=== PATIENT | female | born 1945 | race Caucasian/White ===

== ENCOUNTER 2016-06-22 10:31 | Inpatient (IN) | payer OTHER ==
[2016-05-14 12:57] VITALS: BMI 34.0
--- NOTE | 2016-05-14 13:27 | PAT Medication Instructions ---
Service Date May 14, 2016. Current Home Medication List Atorvastatin (Lipitor), 20 MG PO QAM Cholecalciferol (Vitamin D3), 1 TAB PO QAM Ibuprofen (Advil), 400-600 MG PO Q6H PRN for Pain Tolterodine Tartrate (Detrol LA), 2.5 CAP PO QAM Medication Instructions For Your Scheduled Surgery - Hold the following medications 7 days prior to surgery per surgeon instructions: Ibuprofen (Advil), 400-600 MG PO Q6H PRN for Pain - Hold the following medications the morning of surgery: Tolterodine Tartrate (Detrol LA), 2.5 CAP PO QAM Cholecalciferol (Vitamin D3), 1 TAB PO QAM - Take the following medications the morning of surgery with a sip of water: Atorvastatin (Lipitor), 20 MG PO QAM Tylenol (if needed) - Take the following medications as scheduled the night before surgery: Tylenol (if needed) If you have any questions please call us at [phone] or [phone] ( [place]) or [phone]
--- NOTE | 2016-05-14 14:18 | DIAGNOSTIC IMAGING REPORT ---
CHEST PREADMISSION(PA/LAT) CLINICAL HISTORY: PAT preoperative evaluation COMPARISON STUDY: No previous studies for comparison. FINDINGS: The bones soft tissues and hemidiaphragms are normal. The cardiomediastinal silhouette is normal. The lungs are clear. The pulmonary vasculature is normal. IMPRESSION: Negative chest. Electronically signed by: Rich Matute M.D. 05/14/2016 2:17 PM
[2016-05-14 14:40] LABS: BASO % 0.4 %; BASO ABS # 0.03 K/uL (0-0.2); COMPLETE YES; EOS % 1.9 %; HEMATOCRIT 37.9 % (37-47); IG% 0.1 %; LYMPH ABS # 1.24 K/uL (1.2-3.4); MEAN CELL VOLUME 97.7 fL (80-100); MEAN CORPUSCULAR HGB CONC 32.7 g/dl (32-36); MONO % 7.8 %; NEUT % 72.8 %; PLATELET COUNT 285 K/uL (130-400); RED BLOOD COUNT 3.88 M/uL (4.2-5.4)
[2016-05-14 14:42] LABS: URINE APPEARANCE CLEAR (CLEAR); URINE COLOR DK YELLOW; URINE NITRITE NEG (NEG); UROBILINOGEN NEG (NEG); ZZUR CULT IF INDIC CLEAN CATCH NO
[2016-05-14 14:43] LABS: MANUAL MICROSCOPIC REQUIRED? NO; REVIEW REQ? NO
[2016-05-14 14:44] LABS: URINE BILIRUBIN NEG (NEG)
[2016-05-14 14:53] LABS: PROTHROMBIN TIME (PATIENT) 11.1 SECONDS (9.0-12.0)
[2016-05-14 15:11] LABS: BUN/CREATININE RATIO 22.4 (10-20); CREATININE 0.87 mg/dl (0.60-1.20); POTASSIUM 4.1 mmol/L (3.5-5.1)
[2016-05-14 15:46] LABS: CALCIUM 9.4 mg/dl (8.5-10.1)
--- NOTE | 2016-06-18 09:03 | HISTORY & PHYSICAL EXAMINATION ---
DATE OF ADMISSION: 06/22/2016 CHIEF COMPLAINT: Bilateral knee pain. HISTORY OF PRESENT ILLNESS: Chandni is a 71-year-old female with bilateral knee pain. She states the right is greater than the left. She rates her pain an 8/10. She has pain with her daily activities. She has limited standing and walking tolerance. Pain is worse with weightbearing. The patient has had injections, anti-inflammatories, and wears a knee sleeve without relief. She has failed conservative treatment and is scheduled for right knee replacement. PAST MEDICAL HISTORY: Osteoarthritis, history of breast cancer. She denies heart disease, diabetes or DVT. PAST SURGICAL HISTORY: Modified mastectomy, hysterectomy. SOCIAL HISTORY: The patient denies alcohol or tobacco use. She lives in a 2-story home. She is and retired. FAMILY HISTORY: Negative for DVT. MEDICATIONS: Lipitor 20 mg, vitamin D3 1000 mg daily, Motrin p.r.n., Detrol 5 mg. ALLERGIES: BEE STINGS. REVIEW OF SYSTEMS: See HPI. Ten other systems reviewed, all negative. PHYSICAL EXAMINATION: VITAL SIGNS: Height 5 foot 4, weight 199 pounds, BMI 34. GENERAL: This is a well-developed, well-nourished female who is alert and oriented x3. Mood and affect are appropriate. HEAD, EYES, EARS, NOSE, AND THROAT: Normocephalic, atraumatic. Mucous membranes are moist and intact. NECK: Supple without lymphadenopathy. HEART: Regular rate and rhythm without murmurs, rubs or gallops. LUNGS: Clear to auscultation without wheezes or rhonchi. ABDOMEN: Soft and nontender. Bowel sounds are equal and active. EXTREMITIES: No ecchymosis, redness or warmth. She has a valgus deformity. Range of motion is from 0-110 degrees with no laxity. She is neurovascularly intact with +5/5 strength. X-RAY EXAMINATION: AP and lateral views show joint space narrowing and osteophyte formation. IMPRESSION: Degenerative joint disease, right knee. PLAN: The patient will be admitted for a right total knee arthroplasty. We will plan on aspirin for DVT prophylaxis. The patient is doing [facility] for home physical therapy. PCP is Dr. Marcos in [place].
[2016-06-22] VITALS (8 sets, daily range): BP systolic 130–178; BP diastolic 73–86; PULSE 69–81; TEMP 36.4–36.8; O2SAT 94–100; Ht 162.6 cm; Wt 90.8 kg
[~2016-06-22] VITALS: Ht 162.6 cm; Wt 90.8 kg
[2016-06-22] MEDS: TRANEXAMIC ACID INJ 1,000 MG in SODIUM CHLORIDE 0.9% 100ML 100 ML IV SCH ×2 (06:30→12:38)
[~2016-06-22 10:31] MED LIST: ACETAMINOPHEN 500 MG TAB PO SCH; ATOR-22 PO; ATROPINE SULFATE 0.1 MG/ML 5ML SYR IV PRN; BUPIVACAINE 0.25% 30 ML VIAL ONE; BUPIVACAINE 0.5 % 5 MG/1 ML PF 10ML VIAL ONE; CEFAZOLIN 2000 MG/60 ML D5W 60 ML IV SCH; CHOL1000 PO; CeleBREX 200 MG CAP PO SCH; DEXAMETHASONE 4 MG TAB PO SCH; DTRSR/2 PO; EpHEDrine SULFATE INJ 50 MG/ML AMP IV PRN; FAMOTIDINE 20 MG TAB PO SCH; FENTANYL CITRATE INJ 50 MCG/1 ML 2 ML VIAL IV PRN; GABAPENTIN 300 MG CAP PO SCH; IBUP-1050 PO; LACTATED RINGER'S 1000ML 1,000 ML IV SCH; LACTATED RINGER'S 1000ML 500 ML IV ONE; LACTATED RINGER'S 1000ML IV SCH; METOCLOPRAMIDE HCL 10 MG TAB PO SCH; ONDANSETRON INJ 2 MG/ML 2 ML VIAL IV PRN; OXYCODONE HCL 10 MG TABCR (OXYCONTIN) PO SCH; POLYMYXIN B SULFATE 100,000 UNITS in NSS 100ML IR SCH; ROPIVACAINE 5MG/ML 30 ML 150 MG, BUPIVACAINE/EPINEPHR 0.5% MPF 30 ML, KETOROLAC TROMETH... INFIL SCH; VANCOMYCIN INJ 400 MG in NSS 100ML IR SCH
[2016-06-22] MEDS ORDERED: PROPOFOL IV EMULSION 10 MG/ML 20 ML VIAL IV ONE ×2 (11:40→13:13)
[2016-06-22] MEDS ORDERED: FENTANYL CITRATE INJ 50 MCG/1 ML 2 ML VIAL ONE (11:41)
[2016-06-22] MEDS ORDERED: MIDAZOLAM HCL 1 MG/ML 2ML VIAL ONE (11:41)
--- NOTE | 2016-06-22 11:53 | History & Physical Bridge Note ---
H&P Re-Evaluation Bridge Note: I have examined the patient, reviewed the History & Physical and in the interval since the performance of the History & Physical I have noted the following changes of clinical significance: No changes noted
[2016-06-22] MEDS ORDERED: ORTHO JOINT ANESTHETIC ONE (12:17)
[2016-06-22] MEDS ORDERED: LIDOCAINE HCL 2% 2 ML VIAL (20MG/ML) ONE (13:08)
[2016-06-22] MEDS ORDERED: POVIDONE-IODINE OP SOLN 30 ML BTL TOP ONE (13:35)
[2016-06-22] MEDS ORDERED: BACITRACIN 50000 UNIT VIAL IR ONE (13:35)
[2016-06-22] MEDS ORDERED: BUPIVACAINE/EPINEPHRINE 0.25% 1:200,000 30 ML VIAL INJ ONE (13:35)
[2016-06-22] MEDS ORDERED: PHENYLEPHRINE HCL INJ 10 MG/ML VIAL ONE (13:41)
--- NOTE | 2016-06-22 14:24 | [facility] Post Operative Brief Note ---
Immediate Operative Summary Operative Date Jun 22, 2016. Pre-Operative Diagnosis Degenerative joint disease right knee Post-Operative Diagnosis same as preoperative Procedure(s) Performed Right Total Knee Arthroplasty cemented Surgeon Dr. Ellis Chief Digital Officer Surgeon(s) Subha Justin PA-C Estimated Blood Loss 75ML Findings DJD Specimens A. Right knee bone and tissue Complication(s) None Disposition Recovery Room / PACU
[2016-06-22] MEDS ORDERED: MoRPHine SULFATE 2 MG/ML CARP IV PRN (14:30)
[2016-06-22] MEDS ORDERED: TRAMADOL HCL 50 MG TAB PO PRN (14:30)
[2016-06-22] MEDS ORDERED: SOD PHOSPHATE/SOD BIPHOSPHATE ENEMA 132 ML BTL PR PRN (14:30)
[2016-06-22] MEDS ORDERED: ALUMINUM/MAGNESIUM/SIMETH (MAALOX MAX) 30 ML UDC PO PRN (14:30)
[2016-06-22] MEDS ORDERED: DiphenhydrAMINE HCL 50 MG/ML VIAL IV PRN (14:30)
[2016-06-22] MEDS ORDERED: ONDANSETRON INJ 2 MG/ML 2 ML VIAL IV PRN (14:30)
[2016-06-22] MEDS ORDERED: METOCLOPRAMIDE HCL INJ 5 MG/ML 2 ML VIAL IV PRN (14:30)
[2016-06-22] MEDS ORDERED: BISACODYL 10 MG SUPP PR PRN (14:30)
[2016-06-22] MEDS ORDERED: ZOLPIDEM TARTRATE 5 MG TAB PO PRN (14:30)
[2016-06-22] MEDS ORDERED: MAGNESIUM HYDROXIDE SUSP 30 ML UDC PO PRN (14:30)
--- NOTE | 2016-06-22 15:00 | DIAGNOSTIC IMAGING REPORT ---
RIGHT KNEE 1 OR 2 VIEWS ROUTINE CLINICAL HISTORY: Postoperative evaluation. COMPARISON: None FINDINGS: Alignment of the total right knee arthroplasty is anatomic and there is no fracture or unexpected radiopaque foreign body. Drains are in place. IMPRESSION: Expected findings following total right knee arthroplasty. Electronically signed by: Montez Amos M.D. 06/22/2016 2:58 PM Dictated Date/Time: 06/22/2016 2:57 PM
--- NOTE | 2016-06-22 15:28 | Anesthesiology Progress Note ---
Anesthesia Post Op Note Date & Time Jun 22, 2016 at 15:28 Vital Signs Pain Intensity: 0 Vital Signs Past 12 Hours Date Time Temp Pulse Resp B/P Pulse Ox O2 Delivery O2 Flow Rate FiO2 06/22/16 15:25 36.6 75 18 122/76 99 Nasal Cannula 2 06/22/16 15:15 76 18 117/63 99 Nasal Cannula 2 06/22/16 15:05 73 18 133/75 99 Nasal Cannula 2 06/22/16 14:55 73 16 109/69 100 Mask 10 06/22/16 14:45 68 16 129/69 100 Mask 10 06/22/16 14:36 37. 71 16 134/60 100 Mask 10 06/22/16 11:06 36.7 81 20 178/86 Notes Mental Status: alert / awake / arousable, participated in evaluation Pt Amnestic to Procedure: Yes Nausea / Vomiting: adequately controlled Pain: adequately controlled Airway Patency, RR, SpO2: stable & adequate BP & HR: stable & adequate Hydration State: stable & adequate Neuraxial Anesthesia: was administered, sensory block is resolving Anesthetic Complications: no major complications apparent
[2016-06-22] MEDS: D5W AND 1/2NSS + 20MEQ KCL 1,000 ML IV SCH (16:34)
--- NOTE | 2016-06-22 18:26 | OPERATIVE REPORT ---
DATE OF OPERATION: 06/22/2016 PREOPERATIVE DIAGNOSIS: Degenerative arthritis right knee. POSTOPERATIVE DIAGNOSIS: Same. PROCEDURE: Right total knee patient matched implant. SURGEON: Calvin Ellis MD MACHINE CEMENTER: ISIDORO Shore ANESTHESIA: Spinal. BLOOD LOSS: 75 mL. REPLACEMENT FLUIDS: 1600 mL crystalloid. DRAINS: Hemovac x2. CULTURES: None. COMPLICATIONS: None. COMPONENTS USED: Monte[employer]hew [place] Knee System: Femur size 6, tibia size 5 x 10, patella size 32. NOTE: ISIDORO Shore was present and assisted throughout due to the complicated nature of this case. She helped with preparation and set up, first assisted throughout and personally closed the capsule, subcutaneous and skin layers and applied the postoperative dressing. DESCRIPTION OF PROCEDURE: Following satisfactory spinal, the patient was supine. A tourniquet was placed, but not inflated. The lower extremity was prepared with ChloraPrep and draped sterilely. Following a surgical time-out, a midline incision was made with a median parapatellar arthrotomy. The knee showed grade 4 changes most marked in the patellofemoral and lateral compartments. The cruciate ligaments were excised. The patient matched femoral block was applied. Femoral distal rotation and resection were set and completed. The 4-in-1 block was used to finish preparation of the femur. The patient matched tibial block was applied. Tibial resection was completed. The patella was freehand cut. Soft tissue balancing was completed. A trial reduction showed good tensioning stability on the collateral ligaments, stable range of motion and the patella tracked well. The trial components were removed. The capsule was prepared with the orthopedic cocktail and after irrigation the components were cemented using Simplex G cement. When the cement had hardened, the knee was checked and showed good stability. After irrigation, 2 drains were placed. The arthrotomy was closed with a running suture of 0 V-Loc reinforced with #1 Vicryl. The subcutaneous tissues with 2-0 Vicryl and the skin with a running subcuticular stitch of 3-0 V-Loc. It should be noted a Betadine soak was performed while the cement was hardening. A dry dressing was applied. The patient was returned to her bed in stable condition. I attest to the content of the Intraoperative Record and any orders documented therein. Any exceptio ns are noted below.
[2016-06-22] MEDS: OXYCODONE HCL IR 5 MG TAB (IMMEDIATE RELEASE) PO PRN (19:57)
[2016-06-22] MEDS ORDERED: TRANEXAMIC ACID INJ 1,000 MG in SODIUM CHLORIDE 0.9% 100ML 100 ML IV SCH (20:30)
[2016-06-22] MEDS: SENNA 8.6 MG TAB PO SCH (22:35)
[2016-06-22] MEDS: ASPIRIN 81 MG ECTAB PO SCH (22:36)
[2016-06-22] MEDS: CEFAZOLIN IV 2,000 MG in DEXTROSE 5% 50ML 50 ML IV SCH (22:37)
[2016-06-22] MEDS: ACETAMINOPHEN 500 MG TAB PO SCH (22:37)
[2016-06-22] MEDS: OXYCODONE HCL 10 MG TABCR (OXYCONTIN) PO SCH (22:40)
[2016-06-23] MEDS: D5W AND 1/2NSS + 20MEQ KCL 1,000 ML IV SCH ×2 (02:55→13:12)
[2016-06-23 03:00] VITALS: BP 119/70; PULSE 71; TEMP 36.8; O2SAT 95
[2016-06-23] MEDS: OXYCODONE HCL IR 5 MG TAB (IMMEDIATE RELEASE) PO PRN ×2 (03:01→11:06)
[2016-06-23] MEDS: CEFAZOLIN IV 2,000 MG in DEXTROSE 5% 50ML 50 ML IV SCH (05:52)
[2016-06-23] MEDS: ACETAMINOPHEN 500 MG TAB PO SCH ×3 (05:53→21:27)
[2016-06-23 06:00] LABS: HEMATOCRIT 31.7 % (37-47); MEAN CELL VOLUME 95.5 fL (80-100); MEAN CORPUSCULAR HGB CONC 32.5 g/dl (32-36); MEAN PLATELET VOLUME 10.3 fL (7.4-10.4); PLATELET COUNT 251 K/uL (130-400); RED BLOOD COUNT 3.32 M/uL (4.2-5.4); WHITE BLOOD COUNT 12.33 K/uL (4.8-10.8)
[2016-06-23 06:33] LABS: BUN/CREATININE RATIO 23.6 (10-20); CALCIUM 8.3 mg/dl (8.5-10.1); CREATININE 0.86 mg/dl (0.60-1.20); POTASSIUM 4.9 mmol/L (3.5-5.1)
--- NOTE | 2016-06-23 08:10 | Anesthesiology Progress Note ---
Anesthesia Post Op Note Date & Time Jun 23, 2016 at 08:09 Vital Signs Vital Signs Past 12 Hours Date Time Temp Pulse Resp B/P Pulse Ox O2 Delivery O2 Flow Rate FiO2 06/23/16 07:05 Room Air 06/23/16 03:00 36.8 71 16 119/70 95 Room Air 06/22/16 23:20 36.8 74 16 149/73 94 Nasal Cannula 2.0 Notes Mental Status: alert / awake / arousable, participated in evaluation Pt Amnestic to Procedure: Yes Nausea / Vomiting: adequately controlled Pain: adequately controlled Airway Patency, RR, SpO2: stable & adequate BP & HR: stable & adequate Hydration State: stable & adequate Neuraxial Anesthesia: was administered, sensory block resolved Anesthetic Complications: no major complications apparent
--- NOTE | 2016-06-23 08:11 | Orthopedic Progress Note ---
Orthopedic Progress Note Date of Service Jun 23, 2016. Subjective Post OP Day: 1 Reports: feeling well, Denies: SOB, calf pain, chest pain, light headedness, nausea / vomiting Objective calves soft nontender, N/V intact, dressing C/D/I, A&O x3, toes mobile, hemovac drainage (100/60CC PER SHIFT) Date Time Temp Pulse Resp B/P Pulse Ox O2 Delivery O2 Flow Rate FiO2 06/23/16 07:05 Room Air 06/23/16 03:00 36.8 71 16 119/70 95 Room Air 06/22/16 23:20 36.8 74 16 149/73 94 Nasal Cannula 2.0 06/22/16 19:45 98 Nasal Cannula 2.0 06/22/16 19:25 36.7 73 16 130/76 98 Nasal Cannula 2.0 06/22/16 17:35 76 16 143/80 06/22/16 16:47 73 18 137/81 06/22/16 16:17 69 16 137/76 06/22/16 15:45 36.4 80 16 149/83 100 Nasal Cannula 2.0 06/22/16 15:45 100 Nasal Cannula 2.0 06/22/16 15:45 100 Nasal Cannula 2.0 06/22/16 15:25 36.6 75 18 122/76 99 Nasal Cannula 2 06/22/16 15:15 76 18 117/63 99 Nasal Cannula 2 06/22/16 15:05 73 18 133/75 99 Nasal Cannula 2 06/22/16 14:55 73 16 109/69 100 Mask 10 06/22/16 14:45 68 16 129/69 100 Mask 10 06/22/16 14:36 37. 71 16 134/60 100 Mask 10 06/22/16 11:06 36.7 81 20 178/86 Laboratory Results 24 Hours: Test 06/23/16 05:34 Hematocrit 31.7 % Hemoglobin 10.3 g/dL Assessment & Plan Assessment: POD#1 SP RIGHT TKA Inhouse Planning Pain Management: Celebrex, Oxycontin, PO Tylenol, Oxy IR DVT Prophylaxis: TEDs, SCDs, ASA Discharge Planning Discharge Planning: home with home health (DC WITH [facility] WEDNESDAY)
[2016-06-23] MEDS: ASPIRIN 81 MG ECTAB PO SCH ×2 (08:33→21:26)
[2016-06-23] MEDS: ATORVASTATIN 20 MG TAB PO SCH (08:33)
[2016-06-23] MEDS: MULTIVITAMIN TAB PO SCH (08:34)
[2016-06-23] MEDS: CHOLECALCIFEROL 1000 INTER.UNIT TAB PO SCH (08:34)
[2016-06-23] MEDS: PANTOprazole SOD 40 MG TAB PO SCH (08:34)
[2016-06-23] MEDS: OXYCODONE HCL 10 MG TABCR (OXYCONTIN) PO SCH ×2 (08:36→21:27)
[2016-06-23] MEDS: KETOROLAC TROMETHAMINE 15 MG/ML VIAL IV. PRN (11:06)
[2016-06-23 12:25] VITALS: BP 132/69; PULSE 61; TEMP 36.5; O2SAT 96
[2016-06-23 15:20] VITALS: O2SAT 96
[2016-06-23 15:38] VITALS: BP 124/72; PULSE 60; TEMP 36.5; O2SAT 96
[2016-06-23] MEDS: SENNA 8.6 MG TAB PO SCH (21:00)
[2016-06-23 22:55] VITALS: BP 149/75; PULSE 70; TEMP 36.7; O2SAT 95
[2016-06-24] MEDS: OXYCODONE HCL IR 5 MG TAB (IMMEDIATE RELEASE) PO PRN ×3 (00:41→12:40)
[2016-06-24] MEDS: ACETAMINOPHEN 500 MG TAB PO SCH (05:40)
[2016-06-24] MEDS: KETOROLAC TROMETHAMINE 15 MG/ML VIAL IV. PRN (06:00)
[2016-06-24 06:35] VITALS: BP 111/67; PULSE 69; TEMP 36.7; O2SAT 93
--- NOTE | 2016-06-24 07:20 | DIAGNOSTIC IMAGING REPORT ---
RIGHT KNEE 1 OR 2 VIEWS ROUTINE CLINICAL HISTORY: To visualize any broken pieces of HV tubing Right COMPARISON STUDY: Right knee 06/22/2016. FINDINGS: Patient is status post recent right total knee arthroplasty. The hardware is intact. No fracture or dislocation. Anterior soft tissue swelling and gas is likely due to the recent postoperative change. There is a 1 cm tubular radiopaque foreign body within Hoffa's fat pad. This likely represents a fractured tip of the previous identified drains which have been removed in the interval. IMPRESSION: A 1 cm tubular radiopaque foreign body within Hoffa's fat-pad. This likely represents a fractured tip of the patient's drains. Electronically signed by: James Dumont M.D. 06/24/2016 7:18 AM Dictated Date/Time: 06/24/2016 7:16 AM
[2016-06-24] MEDS: ATORVASTATIN 20 MG TAB PO SCH (07:29)
[2016-06-24] MEDS: CHOLECALCIFEROL 1000 INTER.UNIT TAB PO SCH (07:29)
[2016-06-24] MEDS: MULTIVITAMIN TAB PO SCH (07:30)
[2016-06-24] MEDS: PANTOprazole SOD 40 MG TAB PO SCH (07:30)
[2016-06-24] MEDS: OXYCODONE HCL 10 MG TABCR (OXYCONTIN) PO SCH (07:33)
--- NOTE | 2016-06-24 08:01 | Discharge Instructions ---
Discharge Instructions Admission Reason for Admission: Right Knee Degenerative Arthritis Discharge Discharge Diagnosis / Problem: sp right TKA Discharge Goals Goal(s): Decrease discomfort, Improve function, Increase independence Activity Recommendations Activity Limitations: per Instructions/Follow-up section . Instructions / Follow-Up Instructions / Follow-Up ACTIVITY RECOMMENDATIONS: SELF CARE INSTRUCTIONS AFTER TOTAL KNEE REPLACEMENT A. You may need to continue a physical therapy program after discharge from the hospital. There are several options available to you. Your doctor will assist you in selecting the best one for you. 1. An out-patient facility 2 to 3 times a week for therapy or home therapy. 2. Continue working on all exercises taught to you in the hospital. Your goals should be to increase bending of your knee to 90 degrees and beyond and to fully straighten your knee. B. You may progress at your own pace from walking with a walker or crutches to a cane; then to no assistive devices. C. Make walking a part of your daily routine. Be up as much as comfortable with rest periods throughout the day. Rest with leg elevation is very important. Use the ice wrap frequently for the first 3-4 weeks. D. There are no restrictions on activities. You may ride in a car, shop, participate in manager [employer] and all social activities. E. Wear the long elastic stockings (MEÑO hose) 20 hours a day for 2 weeks after surgery. They can be removed several times a day for laundering and for a bath. F. You may shower, no tub baths until cleared by your doctor. SPECIAL CARE INSTRUCTIONS: VERY IMPORTANT TO READ AND REVIEW A. There are a few signs you need to watch for after you are home. Call [facility] if you notice any of the followin. Increased severe knee pain. Some pain is expected especially when you exercise. 2. Increased swelling in your leg or knee; pain or swelling of the calf muscle in either lower leg. 3. Any fluid drainage from the incision. 4. Shortness of breath or chest pain. B. Please call [facility] at if you have any concerns or questions about your operation or recovery. The doctor or his nurse will return your call promptly. C. You must take antibiotics before dental work, bladder, bowel or other surgery. Your doctor will provide you with a permanent care to carry describing this precaution. IMPORTANT: * REMEMBER TO TAKE ASPIRIN, 81 MG, TWICE DAILY FOR 4 WEEKS UNLESS OTHERWISE DIRECTED. THIS IS YOUR BLOOD THINNER. * HIGH RISK PATIENTS MAY BE PRESCRIBED A STRONGER BLOOD THINNER. THIS WILL BE PROVIDED AT DISCHARGE. * CALL IF INCREASED PAIN, REDNESS, DRAINAGE OR FEVER GREATER THAT 101. * WEAR MEÑO HOSE 20 HOURS PER DAY FOR 2 WEEKS. DERMABOND Prineo- This is a mesh tape dressing that is covered with glue. It should remain in place until the incision is properly healed, usually 10-14 days. This dressing is designed to naturally slough off. You may trim the excess mesh tape as it peels off. Incision may be briefly wet in a shower. Dry immediately by blotting with a clean, dry towel. Do not bath or swim until instructed by your doctor. Do not scratch, rub, or pick at the dressing. Do not apply any topical ointments or lotions until dressing is completely removed and/or instructed by your doctor. There may be a small piece of suture material at one end of your incision. Do not pull or trim this. If it is bothersome or catching on clothing, you may cover it with a band-aid. FOLLOW UP VISIT: If appointment is not already scheduled: Please call [facility] to make a follow-up appointment for 2 weeks after your surgery at . Current Hospital Diet Patient's current hospital diet: Regular Diet Discharge Diet Recommended Diet: Regular Diet Procedures Procedures Performed: Right Total Knee Arthroplasty cemented Pending Studies Studies pending at discharge: no Medical Emergencies . Who to Call and When: Medical Emergencies: If at any time you feel your situation is an emergency, please call 911 immediately. . Non-Emergent Contact Non-Emergency issues call your: Primary Care Provider . "Provider Documentation" section prepared by Subha Justin. VTE Core Measure Inpt VTE Proph given/why not?: Other Anticoagulation, T.E.D. Stockings, SCD's
[2016-06-24] MEDS ORDERED: ONDA8TAB6 PO (08:03)
[2016-06-24] MEDS ORDERED: MORP-157 PO (08:03)
[2016-06-24] MEDS ORDERED: ASPEC81 PO (08:03)
[2016-06-24] MEDS ORDERED: RXC5 PO (08:03)
[2016-06-24] MEDS ORDERED: ACET-1138 PO (08:03)
[2016-06-24] MEDS ORDERED: SNK PO (08:03)
[2016-06-24] MEDS ORDERED: CLB200 PO (08:03)
--- NOTE | 2016-06-24 08:28 | Orthopedic Progress Note ---
Orthopedic Progress Note Date of Service Jun 24, 2016. Subjective Post OP Day: 2 Reports: feeling well, Denies: SOB, calf pain, chest pain, light headedness, nausea / vomiting Additional Notes: NURSING HAD DIFFICULTY REMOVING HEMOVAC. ONE ARM IS COMPLETELY TORN OFF WITH 2 HOLES REMAINING. THE OTHER IS PARTIALLY SEVERED AT THE FIRST HOLE, BUT IS INTACT. PATIENT IS ASYMPTOMATIC. Objective calves soft nontender, N/V intact, dressing C/D/I, A&O x3, toes mobile Date Time Temp Pulse Resp B/P Pulse Ox O2 Delivery O2 Flow Rate FiO2 06/24/16 06:35 36.7 69 16 111/67 93 Room Air 06/24/16 00:36 Room Air 06/23/16 22:55 36.7 70 16 149/75 95 Room Air 06/23/16 15:38 36.5 60 18 124/72 96 Room Air 06/23/16 15:20 96 Room Air 06/23/16 12:25 36.5 61 18 132/69 96 Room Air Assessment & Plan Assessment: POD#2 SP RIGHT TKA Plan: DR. LÓPEZ DISCUSSED RETAINED HEMOVAC. PATIENT IS COMFORTABLE OBSERVING FOR NOW. IF BECOMES PROBLEMATIC, MAY REMOVE ARTHROSCOPICALLY ONCE HEALED. Inhouse Planning Pain Management: Celebrex, Oxycontin, PO Tylenol, Oxy IR DVT Prophylaxis: TEDs, SCDs, ASA Discharge Planning Discharge Planning: home with home health (DC WITH [facility] WEDNESDAY)
[2016-06-24] MEDS: ASPIRIN 81 MG ECTAB PO SCH (09:03)
[2016-06-24 12:29] VITALS: BP 111/67; PULSE 69; TEMP 36.7; O2SAT 93
[2016-06-24] MEDS ORDERED: CeleBREX 200 MG CAP PO SCH (21:00)
== END 2016-06-24 13:06 | disposition home health service (06) | DRG 470 ==
LOC: ENRESERVTM → ENRESERVDT → C.ACU 10:31 → C.3E 11:00
PROVIDERS: ADMIT Orthopaedic Surgery; ATTEND Orthopaedic Surgery
PROC: 0SRC0J9 Replacement of Right Knee Joint with Synthetic Substitute, Cemented, Open Approach (ICD-10-PCS; principal; 2016-06-22 12:15)
DX: M17.11 Unilateral primary osteoarthritis, right knee (principal); Z85.3 Personal history of malignant neoplasm of breast

== ENCOUNTER → 2016-07-21 | Outpatient (CLI) | payer OTHER ==
[~2016-07-21] MED LIST changes: +ACET-1138 PO; -ACETAMINOPHEN 500 MG TAB PO SCH; +ASPEC81 PO; -ATROPINE SULFATE 0.1 MG/ML 5ML SYR IV PRN; -BUPIVACAINE 0.25% 30 ML VIAL ONE; -BUPIVACAINE 0.5 % 5 MG/1 ML PF 10ML VIAL ONE; -CEFAZOLIN 2000 MG/60 ML D5W 60 ML IV SCH; +CLB200 PO; -CeleBREX 200 MG CAP PO SCH; -DEXAMETHASONE 4 MG TAB PO SCH; -EpHEDrine SULFATE INJ 50 MG/ML AMP IV PRN; -FAMOTIDINE 20 MG TAB PO SCH; -FENTANYL CITRATE INJ 50 MCG/1 ML 2 ML VIAL IV PRN; -GABAPENTIN 300 MG CAP PO SCH; -IBUP-1050 PO; -LACTATED RINGER'S 1000ML 1,000 ML IV SCH; -LACTATED RINGER'S 1000ML 500 ML IV ONE; -LACTATED RINGER'S 1000ML IV SCH; -METOCLOPRAMIDE HCL 10 MG TAB PO SCH; +MORP-157 PO; -ONDANSETRON INJ 2 MG/ML 2 ML VIAL IV PRN; -OXYCODONE HCL 10 MG TABCR (OXYCONTIN) PO SCH; -POLYMYXIN B SULFATE 100,000 UNITS in NSS 100ML IR SCH; -ROPIVACAINE 5MG/ML 30 ML 150 MG, BUPIVACAINE/EPINEPHR 0.5% MPF 30 ML, KETOROLAC TROMETH... INFIL SCH; +RXC5 PO; +SNK PO; -VANCOMYCIN INJ 400 MG in NSS 100ML IR SCH; +ZFR/8 PO
[2016-07-21 16:44] LABS: BASO % 0.7 %; BASO ABS # 0.06 K/uL (0-0.2); COMPLETE YES; EOS % 2.7 %; HEMATOCRIT 36.6 % (37-47); IG% 0.2 %; LYMPH % 20.8 %; LYMPH ABS # 1.74 K/uL (1.2-3.4); MEAN CELL VOLUME 96.8 fL (80-100); MEAN CORPUSCULAR HEMOGLOBIN 31.5 pg (25-34); MEAN CORPUSCULAR HGB CONC 32.5 g/dl (32-36); MEAN PLATELET VOLUME 10.3 fL (7.4-10.4); MONO % 9.1 %; NEUT % 66.5 %; PLATELET COUNT 301 K/uL (130-400); RED BLOOD COUNT 3.78 M/uL (4.2-5.4); WHITE BLOOD COUNT 8.38 K/uL (4.8-10.8)
[2016-07-21 17:14] LABS: PARTIAL THROMBOPLASTIN RATIO 0.9; PROTHROMBIN TIME (PATIENT) 10.9 SECONDS (9.0-12.0)
[2016-07-21 17:17] LABS: URINE APPEARANCE CLEAR (CLEAR); URINE BILIRUBIN NEG (NEG); URINE COLOR YELLOW; URINE EPITHELIAL CELL AUTO >30 /lpf (0-5); URINE NITRITE NEG (NEG); URINE SPECIFIC GRAVITY 1.026 (1.000-1.030); UROBILINOGEN NEG (NEG); ZZUR CULT IF INDIC CLEAN CATCH NO
[2016-07-21 17:18] LABS: BLOOD UREA NITROGEN 22 mg/dl (7-18); CARBON DIOXIDE 28 mmol/L (21-32); CHLORIDE 106 mmol/L (98-107); POTASSIUM 4.8 mmol/L (3.5-5.1); SODIUM 143 mmol/L (136-145)
[2016-07-21 17:31] LABS: MANUAL MICROSCOPIC REQUIRED? NO; REVIEW REQ? NO
== END | disposition home or self-care (01) ==
LOC: C.LAB 15:59
PROVIDERS: ATTEND Orthopaedic Surgery
DX: Z01.812 Encounter for preprocedural laboratory examination (principal)

== ENCOUNTER 2016-07-27 07:58 | Inpatient (IN) | payer OTHER ==
[2016-07-15 13:33] VITALS: BMI 34.0
--- NOTE | 2016-07-24 08:58 | HISTORY & PHYSICAL EXAMINATION ---
DATE OF ADMISSION: 07/27/2016 CHIEF COMPLAINT: Left knee pain. HISTORY OF PRESENT ILLNESS: Ms. Cabrera is a 71-year-old female with a multiple-year history of pain in her left knee. The patient rates her pain an 8/10. She has pain with her daily activities. She has limited standing and walking tolerance. Pain is worse with weightbearing. The patient has had her right knee replaced recently and is now scheduled to proceed with the left side. PAST MEDICAL HISTORY: Osteoarthritis, history of breast cancer. She denies heart disease, diabetes or DVT. PAST SURGICAL HISTORY: Modified mastectomy, plastic surgery, hysterectomy and right TKA. SOCIAL HISTORY: The patient denies alcohol or tobacco use. She lives in a 2-story home. She is and retired. FAMILY HISTORY: Negative for DVT. MEDICATIONS: Lipitor 20 mg, Detrol 5 mg, vitamin D3 1000 mg and Motrin. ALLERGIES: BEES. REVIEW OF SYSTEMS: See HPI. Ten other systems reviewed, all negative. PHYSICAL EXAMINATION: VITAL SIGNS: Height 5 foot 4 inches, weight 199 pounds, BMI is 34. GENERAL: This is a well-developed, well-nourished female who is alert and oriented x3. Mood and affect are appropriate. HEENT: Normocephalic, atraumatic. Mucous membranes are moist and intact. NECK: Supple without lymphadenopathy. HEART: Regular rate and rhythm without murmurs, rubs or gallops. LUNGS: Clear to auscultation without wheezes or rhonchi. ABDOMEN: Soft and nontender. Bowel sounds are equal and active. EXTREMITIES: No ecchymosis, redness or warmth. Thigh and calf are soft and nontender. She has a neutral alignment. Range of motion is from 3-110 degrees with no laxity. She is neurovascularly intact with +5/5 strength. X-RAY EXAMINATION: AP and lateral views show joint space narrowing and osteophyte formation. IMPRESSION: Degenerative joint disease, left knee. PLAN: The patient will be admitted for a left total knee arthroplasty. We will plan on aspirin for DVT prophylaxis. PCP is Dr. Warren at [facility]. She is doing [facility] for physical therapy at home.
[2016-07-27] VITALS (8 sets, daily range): BP systolic 96–132; BP diastolic 59–75; PULSE 67–86; TEMP 36.5–36.9; O2SAT 96–99; Ht 162.6 cm; Wt 90.8 kg
[~2016-07-27] VITALS: Ht 162.6 cm; Wt 90.8 kg
[2016-07-27] MEDS: TRANEXAMIC ACID INJ 1,000 MG in SODIUM CHLORIDE 0.9% 100ML 100 ML IV SCH ×2 (06:30→10:20)
[~2016-07-27 07:58] MED LIST changes: -ACET-1138 PO; +ACETAMINOPHEN 500 MG TAB PO SCH; -ASPEC81 PO; +BUPIVACAINE 0.25% 30 ML VIAL ONE; +BUPIVACAINE 0.5 % 5 MG/1 ML PF 10ML VIAL ONE; +CEFAZOLIN 2000 MG/60 ML D5W 60 ML IV SCH; -CLB200 PO; +CeleBREX 200 MG CAP PO SCH; +DEXAMETHASONE 4 MG TAB PO SCH; +FAMOTIDINE 20 MG TAB PO SCH; +GABAPENTIN 300 MG CAP PO SCH; +LACTATED RINGER'S 1000ML 1,000 ML IV SCH; +LACTATED RINGER'S 1000ML 500 ML IV ONE; +LACTATED RINGER'S 1000ML IV SCH; +METOCLOPRAMIDE HCL 10 MG TAB PO SCH; -MORP-157 PO; +OXYCODONE HCL 10 MG TABCR (OXYCONTIN) PO SCH; +POLYMYXIN B SULFATE 100,000 UNITS in NSS 100ML IR SCH; +ROPIVACAINE 5MG/ML 30 ML 150 MG, BUPIVACAINE/EPINEPHR 0.5% MPF 30 ML, KETOROLAC TROMETH... INFIL SCH; -RXC5 PO; -SNK PO; +VANCOMYCIN INJ 400 MG in NSS 100ML IR SCH; -ZFR/8 PO
[2016-07-27] MEDS ORDERED: MIDAZOLAM HCL 1 MG/ML 2ML VIAL ONE (09:56)
[2016-07-27] MEDS ORDERED: FENTANYL CITRATE INJ 50 MCG/1 ML 2 ML VIAL ONE (09:56)
[2016-07-27] MEDS ORDERED: LIDOCAINE HCL 2% 2 ML VIAL (20MG/ML) ONE (09:59)
[2016-07-27] MEDS ORDERED: PROPOFOL IV EMULSION 10 MG/ML 20 ML VIAL IV ONE (09:59)
[2016-07-27] MEDS ORDERED: PHENYLEPHRINE 100MCG/ML 5ML SYR ONE (09:59)
[2016-07-27] MEDS ORDERED: EpHEDrine SULFATE 50MG/5ML SYR ONE (09:59)
[2016-07-27] MEDS ORDERED: POVIDONE-IODINE OP SOLN 30 ML BTL ONE (10:49)
[2016-07-27] MEDS ORDERED: BUPIVACAINE/EPINEPHRINE 0.25% 1:200,000 30 ML VIAL ONE (10:49)
[2016-07-27] MEDS ORDERED: ORTHO JOINT ANESTHETIC ONE (10:49)
[2016-07-27] MEDS ORDERED: BACITRACIN 50000 UNIT VIAL ONE (10:49)
[2016-07-27] MEDS ORDERED: HYDROmorphone INJ 2 MG/ML SYR/VIAL IV PRN (11:30)
[2016-07-27] MEDS ORDERED: ONDANSETRON INJ 2 MG/ML 2 ML VIAL IV PRN ×2 (11:30→12:15)
[2016-07-27] MEDS ORDERED: ATROPINE SULFATE 0.1 MG/ML 5ML SYR IV PRN (11:30)
[2016-07-27] MEDS ORDERED: PHENYLEPHRINE 100MCG/ML 5ML SYR IV PRN (11:30)
[2016-07-27] MEDS ORDERED: EpHEDrine SULFATE INJ 50 MG/ML AMP IV PRN (11:30)
[2016-07-27] MEDS ORDERED: KETOROLAC TROMETHAMINE 30 MG/ML VIAL IV. PRN (11:30)
--- NOTE | 2016-07-27 12:04 | [facility] Post Operative Brief Note ---
Immediate Operative Summary Operative Date Jul 27, 2016. Pre-Operative Diagnosis Left Knee Degenerative Joint Disease Post-Operative Diagnosis Left Knee Degenerative Joint Disease Procedure(s) Performed Left Total Knee Arthoplasty Surgeon Dr. Mario Ellis Assessment Technician Surgeon(s) Reji Winn PA-C Estimated Blood Loss 50 cc Findings DJD Specimens A: Left knee bone and tissue Complication(s) None Disposition Recovery Room / PACU
[2016-07-27] MEDS ORDERED: BISACODYL 10 MG SUPP PR PRN (12:15)
[2016-07-27] MEDS ORDERED: KETOROLAC TROMETHAMINE 15 MG/ML VIAL IV. PRN (12:15)
[2016-07-27] MEDS ORDERED: SOD PHOSPHATE/SOD BIPHOSPHATE ENEMA 132 ML BTL PR PRN (12:15)
[2016-07-27] MEDS ORDERED: ZOLPIDEM TARTRATE 5 MG TAB PO PRN (12:15)
[2016-07-27] MEDS ORDERED: METOCLOPRAMIDE HCL INJ 5 MG/ML 2 ML VIAL IV PRN (12:15)
[2016-07-27] MEDS ORDERED: DiphenhydrAMINE HCL 50 MG/ML VIAL IV PRN (12:15)
[2016-07-27] MEDS ORDERED: TRAMADOL HCL 50 MG TAB PO PRN (12:15)
[2016-07-27] MEDS ORDERED: ALUMINUM/MAGNESIUM/SIMETH (MAALOX MAX) 30 ML UDC PO PRN (12:15)
[2016-07-27] MEDS ORDERED: MAGNESIUM HYDROXIDE SUSP 30 ML UDC PO PRN (12:15)
[2016-07-27] MEDS ORDERED: MoRPHine SULFATE 2 MG/ML CARP IV PRN (12:15)
--- NOTE | 2016-07-27 13:30 | DIAGNOSTIC IMAGING REPORT ---
TWO VIEWS LEFT KNEE CLINICAL HISTORY: Postoperative examination. FINDINGS: AP and crosstable lateral portable views of the left knee are obtained. A left knee arthroplasty is in near anatomic alignment. There has been undersurface remodeling of the patella. No acute fracture is seen. There are expected postoperative changes around the knee including a surgical drain, soft tissue edema, and subcutaneous gas. IMPRESSION: Expected postoperative changes status post left knee arthroplasty. No acute fracture is seen. Electronically signed by: Bridger Piña M.D. 07/27/2016 1:28 PM Dictated Date/Time: 07/27/2016 1:28 PM
--- NOTE | 2016-07-27 13:37 | Anesthesiology Progress Note ---
Anesthesia Post Op Note Date & Time Jul 27, 2016 at 13:37 Vital Signs Pain Intensity: 0 Vital Signs Past 12 Hours Date Time Temp Pulse Resp B/P Pulse Ox O2 Delivery O2 Flow Rate FiO2 07/27/16 13:30 36.6 75 16 109/58 99 Nasal Cannula 2 07/27/16 13:20 36.6 76 16 118/54 99 Nasal Cannula 2 07/27/16 13:10 75 16 128/57 100 Nasal Cannula 2 07/27/16 13:00 74 16 110/57 100 Mask 10 07/27/16 12:50 73 16 105/50 100 Mask 10 07/27/16 12:44 36.9 72 16 107/51 100 Mask 10 07/27/16 08:20 36.5 74 20 132/69 96 Room Air Notes Mental Status: alert / awake / arousable, participated in evaluation Pt Amnestic to Procedure: Yes Nausea / Vomiting: adequately controlled Pain: adequately controlled Airway Patency, RR, SpO2: stable & adequate BP & HR: stable & adequate Hydration State: stable & adequate Anesthetic Complications: no major complications apparent
[2016-07-27] MEDS: D5W AND 1/2NSS + 20MEQ KCL 1,000 ML IV SCH (15:09)
[2016-07-27] MEDS: ACETAMINOPHEN 500 MG TAB PO SCH ×2 (15:55→22:12)
--- NOTE | 2016-07-27 16:22 | OPERATIVE REPORT ---
DATE OF OPERATION: 07/27/2016 PREOPERATIVE DIAGNOSIS: Degenerative arthritis, left knee. POSTOPERATIVE DIAGNOSIS: Same. PROCEDURE: Left total knee with patient matched implant. SURGEON: Dr. Calvin Ellis. STOCK CUTTER: ISIDORO Mota. ANESTHESIA: Spinal. BLOOD LOSS: 50 mL. REPLACEMENT FLUIDS: 1500 mL crystalloid. DRAINS: Hemovac x2. CULTURES: None. COMPLICATIONS: None. COMPONENTS USED: Montez and Nephew [employer] Knee System: Femur size 6, tibia size 6 x 10, and patella size 35. NOTE: ISIDORO Mota was present and assisted throughout due to the complicated nature of this case. He helped with preparation and set up, first assisted throughout and personally closed the capsule, subcutaneous and skin layers and applied the postoperative dressing. DESCRIPTION OF PROCEDURE: Following satisfactory spinal, the patient was supine. A tourniquet was placed, but not inflated. The lower extremity was prepared with ChloraPrep and draped sterilely. Following a surgical time-out, the knee was approached through a trivector approach. The knee showed grade 4 changes throughout. The cruciate ligaments were excised. The patient matched femoral block was applied. Femoral distal rotation and resection were set and completed. The 4-in-1 block was used to finish preparation of the femur. The patient matched tibial block was applied. Tibial resection was completed. The patella was freehand cut. Soft tissue balancing was completed and a trial reduction showed good tensioning and stability on the collateral ligaments, stable range of motion, and the patella tracked well. The trial components were removed. The capsule was prepared with the orthopedic cocktail and after irrigation, the components were cemented using Simplex G cement. A Betadine soak was performed. When the cement had hardened, the Betadine was irrigated. Two drains were placed. The arthrotomy was closed with a running suture of 0 V-Loc, the subcutaneous tissues with 2-0 Vicryl and the skin with a running subcuticular stitch of 3-0 V-Loc. Dermabond and a dry dressing were applied. The patient was returned to her bed in stable condition. I attest to the content of the Intraoperative Record and any orders documented therein. Any exceptio ns are noted below.
[2016-07-27] MEDS ORDERED: TRANEXAMIC ACID INJ 1,000 MG in SODIUM CHLORIDE 0.9% 100ML 100 ML IV SCH (19:00)
[2016-07-27] MEDS: OXYCODONE HCL IR 5 MG TAB (IMMEDIATE RELEASE) PO PRN (19:55)
[2016-07-27] MEDS: CEFAZOLIN IV 2,000 MG in DEXTROSE 5% 50ML 50 ML IV SCH (20:23)
[2016-07-27] MEDS: OXYCODONE HCL 10 MG TABCR (OXYCONTIN) PO SCH (21:34)
[2016-07-27] MEDS: SENNA 8.6 MG TAB PO SCH (21:34)
[2016-07-27] MEDS: ASPIRIN 81 MG ECTAB PO SCH (21:34)
[2016-07-28] MEDS: D5W AND 1/2NSS + 20MEQ KCL 1,000 ML IV SCH ×2 (00:57→10:56)
[2016-07-28] MEDS: OXYCODONE HCL IR 5 MG TAB (IMMEDIATE RELEASE) PO PRN (01:03)
[2016-07-28 03:02] VITALS: BP 106/64; PULSE 62; TEMP 36.7; O2SAT 96
[2016-07-28] MEDS: CEFAZOLIN IV 2,000 MG in DEXTROSE 5% 50ML 50 ML IV SCH (03:43)
[2016-07-28] MEDS: ACETAMINOPHEN 500 MG TAB PO SCH ×3 (05:56→21:21)
[2016-07-28 07:14] VITALS: BP 131/79; PULSE 68; TEMP 36.6; O2SAT 95
[2016-07-28 07:14] LABS: MEAN CELL VOLUME 94.5 fL (80-100); MEAN CORPUSCULAR HEMOGLOBIN 31.3 pg (25-34); MEAN CORPUSCULAR HGB CONC 33.1 g/dl (32-36); MEAN PLATELET VOLUME 9.9 fL (7.4-10.4); PLATELET COUNT 223 K/uL (130-400); RED BLOOD COUNT 3.07 M/uL (4.2-5.4); WHITE BLOOD COUNT 13.26 K/uL (4.8-10.8)
[2016-07-28 07:45] LABS: BUN/CREATININE RATIO 20.8 (10-20); CALCIUM 8.4 mg/dl (8.5-10.1); CREATININE 1.1 mg/dl (0.60-1.20); POTASSIUM 4.6 mmol/L (3.5-5.1)
[2016-07-28] MEDS: ASPIRIN 81 MG ECTAB PO SCH ×2 (08:44→21:21)
[2016-07-28] MEDS: TOLTERODINE TARTRATE LA 2 MG CAPCR PO SCH (08:44)
[2016-07-28] MEDS: OXYCODONE HCL 10 MG TABCR (OXYCONTIN) PO SCH ×2 (08:45→21:21)
[2016-07-28] MEDS: CHOLECALCIFEROL 1000 INTER.UNIT TAB PO SCH (08:45)
[2016-07-28] MEDS: PANTOprazole SOD 40 MG TAB PO SCH (08:45)
[2016-07-28] MEDS: ATORVASTATIN 20 MG TAB PO SCH (08:45)
[2016-07-28] MEDS: MULTIVITAMIN TAB PO SCH (08:45)
[2016-07-28] MEDS ORDERED: TOLTERODINE TARTRATE LA 2 MG CAPCR PO SCH (09:00)
--- NOTE | 2016-07-28 09:38 | Orthopedic Progress Note ---
Orthopedic Progress Note Date of Service Jul 28, 2016. Subjective Post OP Day: 1 Reports: feeling well, Denies: SOB, calf pain, chest pain, light headedness, nausea / vomiting Objective calves soft nontender, N/V intact, dressing C/D/I, A&O x3, toes mobile, hemovac drainage (285/100 cc per shift) Date Time Temp Pulse Resp B/P Pulse Ox O2 Delivery O2 Flow Rate FiO2 07/28/16 07:53 Room Air 07/28/16 07:14 36.6 68 16 131/79 95 Room Air 07/28/16 03:02 36.7 62 16 106/64 96 Room Air 07/28/16 00:50 Room Air 07/27/16 22:56 36.6 67 16 123/68 97 Room Air 07/27/16 20:14 36.9 67 18 115/66 96 Room Air 07/27/16 17:45 Nasal Cannula 2.0 07/27/16 16:46 36.9 72 18 108/62 97 Nasal Cannula 2.0 07/27/16 15:45 36.8 74 16 112/70 97 Nasal Cannula 2.0 07/27/16 14:46 79 16 119/75 98 Nasal Cannula 2.0 07/27/16 14:22 78 16 119/65 98 Nasal Cannula 2.0 07/27/16 14:21 Nasal Cannula 2.0 07/27/16 13:50 99 Nasal Cannula 2.0 07/27/16 13:50 36.8 86 16 96/59 96 Nasal Cannula 2.0 07/27/16 13:30 36.6 75 16 109/58 99 Nasal Cannula 2 07/27/16 13:20 36.6 76 16 118/54 99 Nasal Cannula 2 07/27/16 13:10 75 16 128/57 100 Nasal Cannula 2 07/27/16 13:00 74 16 110/57 100 Mask 10 07/27/16 12:50 73 16 105/50 100 Mask 10 07/27/16 12:44 36.9 72 16 107/51 100 Mask 10 Laboratory Results 24 Hours: Test 07/28/16 06:41 Hematocrit 29.0 % Hemoglobin 9.6 g/dL Assessment & Plan Assessment: POD#1 sp left TKA Inhouse Planning Pain Management: Celebrex, Oxycontin, PO Tylenol, Oxy IR DVT Prophylaxis: TEDs, SCDs, ASA Discharge Planning Discharge Planning: home with home health ([place] [facility]
[2016-07-28 10:48] VITALS: BP_SYST 122; BP_SYST 139; BP_DIAS 67; BP_DIAS 69; PULSE 58; PULSE 66; TEMP 36.6; TEMP 36.7; O2SAT 94; O2SAT 97
[2016-07-28 15:30] VITALS: BP 142/80; PULSE 68; TEMP 36.8; O2SAT 98
[2016-07-28] MEDS: SENNA 8.6 MG TAB PO SCH (21:48)
[2016-07-28 23:05] VITALS: BP 124/67; PULSE 74; TEMP 36.9; O2SAT 96
[2016-07-29] MEDS: OXYCODONE HCL IR 5 MG TAB (IMMEDIATE RELEASE) PO PRN ×2 (01:05→11:02)
[2016-07-29] MEDS: ACETAMINOPHEN 500 MG TAB PO SCH (04:59)
[2016-07-29 07:05] VITALS: BP 122/69; PULSE 66; TEMP 36.8; O2SAT 94
--- NOTE | 2016-07-29 07:55 | Orthopedic Progress Note ---
Orthopedic Progress Note Date of Service Jul 29, 2016. Subjective Post OP Day: 2 Reports: feeling well, Denies: SOB, calf pain, chest pain, light headedness, nausea / vomiting Objective calves soft nontender, N/V intact, dressing C/D/I, A&O x3, toes mobile Date Time Temp Pulse Resp B/P Pulse Ox O2 Delivery O2 Flow Rate FiO2 07/29/16 07:05 36.8 66 16 122/69 94 Room Air 07/29/16 00:50 Room Air 07/28/16 23:05 36.9 74 16 124/67 96 Room Air 07/28/16 15:30 36.8 68 18 142/80 98 Room Air 07/28/16 15:15 Room Air 07/28/16 10:48 36.6 68 16 95 Room Air 07/28/16 10:48 36.7 58 16 139/67 97 Room Air Assessment & Plan Assessment: POD#2 sp left TKA Inhouse Planning Pain Management: Celebrex, Oxycontin, PO Tylenol, Oxy IR DVT Prophylaxis: TEDs, SCDs, ASA Discharge Planning Discharge Planning: home with home health ([place] [facility] DVT Prophylaxis: TEDs, SCDs, ASA
--- NOTE | 2016-07-29 07:57 | Discharge Instructions ---
Discharge Instructions Admission Reason for Admission: Left Knee Degenerative Arthritis Discharge Discharge Diagnosis / Problem: SP LEFT TKA Discharge Goals Goal(s): Decrease discomfort, Improve function, Increase independence Activity Recommendations Activity Limitations: per Instructions/Follow-up section . Instructions / Follow-Up Instructions / Follow-Up ACTIVITY RECOMMENDATIONS: SELF CARE INSTRUCTIONS AFTER TOTAL KNEE REPLACEMENT A. You may need to continue a physical therapy program after discharge from the hospital. There are several options available to you. Your doctor will assist you in selecting the best one for you. 1. An out-patient facility 2 to 3 times a week for therapy or home therapy. 2. Continue working on all exercises taught to you in the hospital. Your goals should be to increase bending of your knee to 90 degrees and beyond and to fully straighten your knee. B. You may progress at your own pace from walking with a walker or crutches to a cane; then to no assistive devices. C. Make walking a part of your daily routine. Be up as much as comfortable with rest periods throughout the day. Rest with leg elevation is very important. Use the ice wrap frequently for the first 3-4 weeks. D. There are no restrictions on activities. You may ride in a car, shop, participate in embedded hardware engineer and all social activities. E. Wear the long elastic stockings (MEÑO hose) 20 hours a day for 2 weeks after surgery. They can be removed several times a day for laundering and for a bath. F. You may shower, no tub baths until cleared by your doctor. SPECIAL CARE INSTRUCTIONS: VERY IMPORTANT TO READ AND REVIEW A. There are a few signs you need to watch for after you are home. Call [facility] [place] if you notice any of the followin. Increased severe knee pain. Some pain is expected especially when you exercise. 2. Increased swelling in your leg or knee; pain or swelling of the calf muscle in either lower leg. 3. Any fluid drainage from the incision. 4. Shortness of breath or chest pain. B. Please call [facility] [place] at if you have any concerns or questions about your operation or recovery. The doctor or his nurse will return your call promptly. C. You must take antibiotics before dental work, bladder, bowel or other surgery. Your doctor will provide you with a permanent care to carry describing this precaution. IMPORTANT: * REMEMBER TO TAKE ASPIRIN, 81 MG, TWICE DAILY FOR 4 WEEKS UNLESS OTHERWISE DIRECTED. THIS IS YOUR BLOOD THINNER. * HIGH RISK PATIENTS MAY BE PRESCRIBED A STRONGER BLOOD THINNER. THIS WILL BE PROVIDED AT DISCHARGE. * CALL IF INCREASED PAIN, REDNESS, DRAINAGE OR FEVER GREATER THAT 101. * WEAR MEÑO HOSE 20 HOURS PER DAY FOR 2 WEEKS. DERMABOND Prineo- This is a mesh tape dressing that is covered with glue. It should remain in place until the incision is properly healed, usually 10-14 days. This dressing is designed to naturally slough off. You may trim the excess mesh tape as it peels off. Incision may be briefly wet in a shower. Dry immediately by blotting with a clean, dry towel. Do not bath or swim until instructed by your doctor. Do not scratch, rub, or pick at the dressing. Do not apply any topical ointments or lotions until dressing is completely removed and/or instructed by your doctor. There may be a small piece of suture material at one end of your incision. Do not pull or trim this. If it is bothersome or catching on clothing, you may cover it with a band-aid. FOLLOW UP VISIT: If appointment is not already scheduled: Please call [facility] [place] to make a follow-up appointment for 2 weeks after your surgery at . Current Hospital Diet Patient's current hospital diet: Regular Diet Discharge Diet Recommended Diet: Regular Diet Procedures Procedures Performed: Left Total Knee Arthoplasty Pending Studies Studies pending at discharge: no Medical Emergencies . Who to Call and When: Medical Emergencies: If at any time you feel your situation is an emergency, please call 911 immediately. . Non-Emergent Contact Non-Emergency issues call your: Primary Care Provider . "Provider Documentation" section prepared by Subha Justin. VTE Core Measure Inpt VTE Proph given/why not?: Other Anticoagulation, T.E.D. Stockings, SCD's [place] Drug Monitoring Program Search Results: patient reviewed within database, no issues identified
[2016-07-29] MEDS ORDERED: CLB200 PO (07:59)
[2016-07-29] MEDS ORDERED: RXC5 PO (07:59)
[2016-07-29] MEDS ORDERED: MORP-157 PO (07:59)
[2016-07-29] MEDS ORDERED: ASPEC81 PO (07:59)
[2016-07-29] MEDS ORDERED: ACET-1138 PO (07:59)
[2016-07-29] MEDS ORDERED: ZFR/8 PO (07:59)
[2016-07-29] MEDS ORDERED: SNK PO (07:59)
[2016-07-29] MEDS: ATORVASTATIN 20 MG TAB PO SCH (08:57)
[2016-07-29] MEDS: OXYCODONE HCL 10 MG TABCR (OXYCONTIN) PO SCH (08:57)
[2016-07-29] MEDS: CHOLECALCIFEROL 1000 INTER.UNIT TAB PO SCH (08:58)
[2016-07-29] MEDS: TOLTERODINE TARTRATE LA 2 MG CAPCR PO SCH (08:58)
[2016-07-29] MEDS: PANTOprazole SOD 40 MG TAB PO SCH (08:58)
[2016-07-29] MEDS: MULTIVITAMIN TAB PO SCH (08:59)
[2016-07-29] MEDS: ASPIRIN 81 MG ECTAB PO SCH (09:48)
[2016-07-29] MEDS ORDERED: CeleBREX 200 MG CAP PO SCH (21:00)
--- NOTE | 2016-07-30 15:29 | DISCHARGE SUMMARY ---
DISCHARGE DIAGNOSIS: Degenerative joint disease, left knee. SECONDARY DIAGNOSES: Osteoarthritis, history of breast carcinoma. CONSULTS: None. COMPLICATIONS: None. PROCEDURE: Left total knee arthroplasty performed by Dr. Calvin Ellis on 07/27/2016. BRIEF HISTORY: As dictated in the history and physical. HOSPITAL SUMMARY: The patient was admitted on the above date and had the above-noted surgery performed which she tolerated well. On her first postoperative day, she was feeling well and had no complaints. The calves were soft and nontender, neurovascularly intact. Dressings clean, dry and intact. Toes were mobile. Vital signs were stable. She was afebrile. Hemoglobin was 9.6. She was started on physical therapy protocol and continued on DVT prophylaxis and pain management. By her second postoperative day, she was feeling well and had no complaints. Calves were soft, nontender. Neurovascularly intact. Dressings clean, dry and intact. Toes were mobile. She was progressing well with her physical therapy and it was felt she could be discharged to home with home health services. For further review, please see chart. LAB AND X-RAY DATA: As per chart. DISCHARGE INSTRUCTIONS: The patient was discharged to home in satisfactory condition on 07/29/2016. DIET: Regular. ACTIVITY: Follow TKA instruction sheets and special care instructions. Follow up with Dr. Calvin Ellis in 2 weeks. The patient to call for appointment if one has not been made for you. DISCHARGE MEDICATIONS: Acetaminophen 1000 mg p.o. q. 8 hours, aspirin 81 mg p.o. b.i.d., Celebrex 200 mg p.o. b.i.d., MS Contin 15 mg p.o. q. 12 hours, Zofran 8 mg p.o. q. 8 hours p.r.n., oxycodone 5-10 mg p.o. q. 4 hours p.r.n. and senna 17.2 mg p.o. at bedtime. Resume taking atorvastatin 20 mg p.o. q.a.m., vitamin D3 one tab p.o. q.a.m. 1000 unit tab, and Detrol LA 4 mg tablet, total of 4 mg p.o. q.a.m.
== END 2016-07-29 11:38 | disposition home health service (06) | DRG 470 ==
LOC: ENRESERVDT → ENRESERVTM → C.ACU 07:58 → C.3E 09:00
PROVIDERS: ADMIT Orthopaedic Surgery; ATTEND Orthopaedic Surgery
PROC: 0SRD0J9 Replacement of Left Knee Joint with Synthetic Substitute, Cemented, Open Approach (ICD-10-PCS; principal; 2016-07-29)
DX: M17.12 Unilateral primary osteoarthritis, left knee (principal); E66.9 Obesity, unspecified; M26.609 Unspecified temporomandibular joint disorder, unspecified side; Z96.651 Presence of right artificial knee joint; Z85.3 Personal history of malignant neoplasm of breast; Z68.34 Body mass index [BMI] 34.0-34.9, adult; Z92.21 Personal history of antineoplastic chemotherapy; Z79.1 Long term (current) use of non-steroidal anti-inflammatories (NSAID); Z79.899 Other long term (current) drug therapy